=== PATIENT | female | born 1995 | race African-American/Black ===

== ENCOUNTER 2018-04-05 05:06 | Emergency (ER) | payer OTHER ==
[~2018-04-05] VITALS: Ht 157.5 cm; Wt 61.4 kg
[~2018-04-05 05:06] MED LIST: CEPALOZ SUCK-ON; IBUP-232 PO
[2018-04-05 05:08] VITALS: BP 118/57; PULSE 97; RESP 18; TEMP 98.1; O2SAT 99
[2018-04-05] MEDS ORDERED: VENTAER INH (05:23)
[2018-04-05] MEDS ORDERED: ZOFR4TAB3 SL (05:44)
--- NOTE | 2018-04-05 05:44 | PD ---
HPI Chief Complaint: Breakfast Server Problem/Complaint Time Seen by Provider: 05:41 Travel History International Travel<30 days: No Contact w/Intl Traveler<30days: No Traveled to known affect area: No History of Present Illness HPI 22-year-old otherwise healthy female presents the ER for evaluation of pain during her period. Patient is currently on the first day of her period and says that she is having bad pain. Patient states that she regularly gets pain with her menstrual cycle for the last 4 5 periods and says that she takes ibuprofen 200s but that does not help. Pain is rated 6 out of 10, cramp like, comes and goes, no UTI-like symptoms, no burning or urgency urination, no fevers chills or night sweats. PFSH Past Medical History Asthma: Yes Diminished Hearing: No Reproductive: Yes (PAINFUL PERIODS) Immunizations Current: Yes Tetanus Vaccination: < 5 Years Influenza Vaccination: No ?: Not LMP: NOW Past Surgical History Surgical History: No Previous Surgery Social History Alcohol Use: No Tobacco Use: No Substance Use: No Allergies-Medications (Allergen,Severity, Reaction): Coded Allergies: No Known Allergies (Verified Adverse Reaction, Unknown, 04/05/18) Reported Meds & Prescriptions Reported Meds & Active Scripts Active Zofran Odt (Ondansetron Odt) 4 Mg Tab 4 Mg SL Q12HR PRN Reported Ventolin Hfa 18 GM Inh (Albuterol Sulfate) 90 Mcg/Act Aer 2 Puff INH Q6H PRN Review of Systems Except as stated in HPI: all other systems reviewed are Neg Physical Exam Narrative GENERAL: Alert oriented 3 no acute distress SKIN: Focused skin assessment warm/dry. HEAD: Atraumatic. Normocephalic. EYES: Pupils equal and round. No scleral icterus. No injection or drainage. ENT: No nasal bleeding or discharge. Mucous membranes pink and moist. NECK: Trachea midline. No JVD. CARDIOVASCULAR: Regular rate and rhythm. No murmur appreciated. RESPIRATORY: No accessory muscle use. Clear to auscultation. Breath sounds equal bilaterally. GASTROINTESTINAL: Abdomen soft, non-tender, nondistended. Hepatic and splenic margins not palpable. MUSCULOSKELETAL: No obvious deformities. No clubbing. No cyanosis. No edema. NEUROLOGICAL: Awake and alert. No obvious cranial nerve deficits. Motor grossly within normal limits. Normal speech. PSYCHIATRIC: Appropriate mood and affect; insight and judgment normal. Data Data Last Documented VS Vital Signs Date Time Temp Pulse Resp B/P (MAP) Pulse Ox O2 Delivery O2 Flow Rate FiO2 04/05/18 05:55 04/05/18 05:08 98.1 97 18 99 Orders Orders Ed Urine Pregnancytest Poc (04/05/18 05:37) Ed Discharge Order (04/05/18 05:41) MDM Medical Decision Making Medical Screen Exam Complete: Yes Emergency Medical Condition: Yes Differential Diagnosis Endometriosis, endometritis, UTI. Narrative Course 23-year-old here for pain during her menstrual cycle. Patient is currently on her menstrual cycle first day, explained to the patient that she may need to have an ultrasound done after her cycles over, she does not have any concerning signs or symptoms of any acute pathology for now and explained to her that she can take ibuprofen 600 instead of 200 and recommended that she follow-up with her OB for ultrasound of the uterus to see if there is any structural abnormalities and discussed the possibility of putting her on oral contraceptives to minimize the pain meanwhile for now I did not want to order ultrasound of the uterus because she is currently on her menstrual cycle. Patient vitals are stable and that she can follow-up with OB. Diagnosis Primary Impression: Heavy menses Qualified Codes: N92.0 - Excessive and frequent menstruation with regular cycle Additional Instructions: Follow-up with OB and return to ER if symptoms change or do not improve. Scripts Ondansetron Odt (Zofran Odt) 4 Mg Tab 4 MG SL Q12HR Y for Nausea/Vomiting, #20 TAB 0 Refills Prov: William Bush MD 04/05/18 Disposition: 01 DISCHARGE HOME Condition: Stable William Bush MD Apr 05, 2018 05:44
== END 2018-04-05 05:56 | disposition home or self-care (01) ==
LOC: PHED 05:06
DX: N92.0 Excessive and frequent menstruation with regular cycle (principal); J45.909 Unspecified asthma, uncomplicated
CPT/HCPCS: 84703; 99283